=== PATIENT | male | born 1995 | race Caucasian/White ===

== ENCOUNTER 2018-08-18 20:56 | Emergency (ER) | payer BC ==
[~2018-08-18] VITALS: Ht 175.3 cm; Wt 103.3 kg
[~2018-08-18 20:56] MED LIST: IBUP800T48 PO
[2018-08-18 21:27] VITALS: Ht 175.3 cm; Wt 103.3 kg
--- NOTE | 2018-08-19 00:55 | ERD ---
ER Documentation Chief Complaint Chief Complaint felt some cysts/bumps along his bernice wrists today,no injury HPI This is a 23-year-old male with no previous medical problems who presents to the ER for evaluation of a bump he noticed on his right and left wrist. The patient denies any pain with associated with these and states that he noticed some 2 days ago. The patient does have a history of vitiligo. And states that he does play basketball frequently. ROS All systems reviewed and are negative except as per history of present illness. Medications Home Meds Active Scripts Ibuprofen* (Motrin*) 800 Mg Tab, 800 MG PO Q6H PRN for PAIN AND OR ELEVATED TEMP, #30 TAB Prov:BARTOLO YUSUF DO 02/08/16 Allergies Allergies: Coded Allergies: No Known Allergy (Unverified , 08/18/18) PMhx/Soc History of Surgery: No Anesthesia Reaction: No Hx Neurological Disorder: No Hx Respiratory Disorders: No Hx Cardiac Disorders: No Hx Psychiatric Problems: No Hx Miscellaneous Medical Probl: No Hx Alcohol Use: No Hx Substance Use: No Hx Tobacco Use: No Smoking Status: Never smoker Physical Exam Vitals Vital Signs Date Temp Pulse Resp B/P (MAP) Pulse Ox O2 O2 Flow FiO2 Time Delivery Rate 08/18/18 98.3 61 18 144/77 98 21:27 (99) Physical Exam Const: No acute distress Head: Atraumatic Eyes: Normal Conjunctiva ENT: Normal External Ears, Nose and Mouth. Neck: Full range of motion. No meningismus. Resp: Clear to auscultation bilaterally Cardio: Regular rate and rhythm, no murmurs Abd: Soft, non tender, non distended. Normal bowel sounds Skin: Vitiligo of hands Back: No midline or flank tenderness Ext: Small ganglion cyst noted on the lateral portion of the right wrist, no cyanosis, or edema Neur: Awake and alert Psych: Normal Mood and Affect Procedures/MDM This 23-year-old male presents the emergency room for evaluation of a cyst. The patient does have what appears to be a ganglion cyst on the right upper extremity just proximal to the right wrist. There is no surrounding cellulitis, there is no abscess formation. The patient does have a history of vitiligo and I advised the patient that these cysts are self-limiting and will likely go away on their own. The patient was given Motrin in the ER will be discharged home with a prescription for Motrin. Departure Diagnosis: Primary Impression: Ganglion cyst Condition: Stable JOSEFINA BARCENAS DO Aug 19, 2018 00:55
[2018-08-19] MEDS ORDERED: IBUP800T48 PO (00:56)
[2018-08-19] MEDS ORDERED: IBUPROFEN 800 MG TAB PO ONE (01:00)
[2018-08-19 01:17] VITALS: BP 127/76; PULSE 71; RESP 18
== END 2018-08-19 01:18 | disposition home or self-care (01) ==
LOC: E/R 20:56
DX: M67.431 Ganglion, right wrist (principal)
CPT/HCPCS: 99282; Z7610